=== PATIENT | female | born 1965 | race Hispanic/Latino ===

== ENCOUNTER 2016-04-07 09:47 | Outpatient (CLI) | payer BC ==
--- NOTE | 2016-04-07 15:51 | Mammography Report ---
RIGHT DIGITAL DIAGNOSTIC MAMMOGRAM and RIGHT BREAST ULTRASOUND: 04/07/16 09:47:00 CLINICAL: Recalled for asymmetry. COMPARISON:03/16/16 screening FINDINGS: Lateralmedial and spot magnification LM and CC views were performed. Satisfactory effacement of the previously described asymmetry on the CC spot view. However, a different partially circumscribed asymmetry is identified on both lateral and spot LM views. . Ultrasound of the left breast (including all four quadrants and the retroareolar area) was performed. A cluster of benign cysts at 9 o'clock 3 cm from the nipple measures 1.7 x 1.2 x 2.0 cm and correlates with the mammographic asymmetry on the lateral views. No ultrasound finding to correlate with the central asymmetry on the CC view. IMPRESSION: Benign cysts and no suspicious finding. BI-RADS CATEGORY: 2 - - Benign RECOMMENDATION: Routine mammographic screening in one year. ACR BI-RADS MAMMOGRAPHIC CODES: 0 = Needs additional imaging evaluation; 1 = Negative; 2 = Benign; 3 = Probably benign; 4 = Suspicious; 5 = Malignant; 6 = Known biopsy-proven malignancy COMMENT: 1. Dense breast tissue, i.e., adenosis, fibrocystic changes, etc., may obscure an underlying neoplasm. 2. Approximately 10% of cancers are not detected with mammography. 3. A negative mammography report should not delay biopsy if a clinically suspicious mass is present. COMMENT: Patient follow-up letters are generated via our [employer] application.
== END 2016-04-07 09:48 | disposition home or self-care (01) ==
LOC: SPVWC 09:47
PROVIDERS: ATTEND Obstetrics & Gynecology
DX: N60.01 Solitary cyst of right breast (principal); R92.8 Other abnormal and inconclusive findings on diagnostic imaging of breast
CPT/HCPCS: 76641; G0206

== ENCOUNTER 2017-06-13 10:52 | Outpatient (CLI) | payer BC ==
--- NOTE | 2017-06-14 13:01 | Mammography Report ---
BILATERAL DIGITAL SCREENING MAMMOGRAM with CAD: 06/13/17 10:52:00 CLINICAL: Routine screening. COMPARISON:03/16/16 FINDINGS: The breasts are heterogeneously dense, which may obscure small masses. Right asymmetry on both views requires additional imaging.No architectural distortion or suspicious calcifications.The left breast is negative. IMPRESSION: Right asymmetries requiring further workup. BI-RADS CATEGORY: 0 -- Additional Imaging Evaluation Required RECOMMENDATION: Recall for right mediolateral , spot magnification CC and MLO views and right breast ultrasound. ACR BI-RADS MAMMOGRAPHIC CODES: 0 = Needs additional imaging evaluation; 1 = Negative; 2 = Benign; 3 = Probably benign; 4 = Suspicious; 5 = Malignant; 6 = Known biopsy-proven malignancy COMMENT: 1. Dense breast tissue, i.e., adenosis, fibrocystic changes, etc., may obscure an underlying neoplasm. 2. Approximately 10% of cancers are not detected with mammography. 3. A negative mammography report should not delay biopsy if a clinically suspicious mass is present. COMMENT: Patient follow-up letters are generated via our [employer] application.
== END 2017-06-13 10:53 | disposition home or self-care (01) ==
LOC: SPVWC 10:52
PROVIDERS: ATTEND Obstetrics & Gynecology
DX: Z12.31 Encounter for screening mammogram for malignant neoplasm of breast (principal)
CPT/HCPCS: 77067

== ENCOUNTER 2017-06-23 09:24 | Outpatient (CLI) | payer BC ==
--- NOTE | 2017-06-23 12:33 | Ultrasound Report ---
RIGHT DIGITAL DIAGNOSTIC MAMMOGRAM and RIGHT BREAST ULTRASOUND: 06/23/17 09:24:00 CLINICAL: Recalled for asymmetry. COMPARISON:06/13/17 screening FINDINGS: ML and spot magnification MLO and CC views were performed. A partially circumscribed asymmetry persists on all views. Ultrasound of the upper outer right breast was performed and demonstrated a septated cyst with globular shape at 9 o'clock 6 cm from the nipple. It measures 3.2 x 2.1 x 1.8 cm and correlates with the mammographic density. A second benign cyst at 10 o'clock 6 cm from the nipple measures 1.1 x 0.5 x 1.0 cm. No solid mass or shadowing. IMPRESSION: Benign cysts at 9 o'clock and 10 o'clock right breast. BI-RADS CATEGORY: 2 - - Benign RECOMMENDATION: Routine mammographic screening in one year. ACR BI-RADS MAMMOGRAPHIC CODES: 0 = Needs additional imaging evaluation; 1 = Negative; 2 = Benign; 3 = Probably benign; 4 = Suspicious; 5 = Malignant; 6 = Known biopsy-proven malignancy COMMENT: 1. Dense breast tissue, i.e., adenosis, fibrocystic changes, etc., may obscure an underlying neoplasm. 2. Approximately 10% of cancers are not detected with mammography. 3. A negative mammography report should not delay biopsy if a clinically suspicious mass is present. COMMENT: Patient follow-up letters are generated via our [employer] application.
== END 2017-06-23 09:25 | disposition home or self-care (01) ==
LOC: SPVWC 09:24
PROVIDERS: ATTEND Obstetrics & Gynecology
DX: N60.01 Solitary cyst of right breast (principal); R92.8 Other abnormal and inconclusive findings on diagnostic imaging of breast

== ENCOUNTER 2018-06-12 12:39 | Outpatient (CLI) | payer BC ==
--- NOTE | 2018-06-13 10:25 | Mammography Report ---
BILATERAL DIGITAL SCREENING MAMMOGRAM with CAD : 06/12/18 12:39:00 CLINICAL: Routine screening.History of right breast cysts. COMPARISON:06/23/17 right breast ultrasound and mammograms from 06/23/17, 06/13/17, 04/07/16 and 03/16/16 FINDINGS: The breasts are heterogeneously dense, which may obscure small masses.Previously identified right outer cysts are smaller. A few scattered benign calcifications. No mass, architectural distortion or suspicious calcifications. IMPRESSION: No mammographic evidence of malignancy. BI-RADS CATEGORY: 2 -- Benign RECOMMENDATION: Routine mammographic screening in one year. COMMENT: Patient follow-up letters are generated by our [employer] application.
== END 2018-06-12 12:40 | disposition home or self-care (01) ==
LOC: SPVWC 12:39
PROVIDERS: ATTEND Obstetrics & Gynecology
DX: Z12.31 Encounter for screening mammogram for malignant neoplasm of breast (principal)
CPT/HCPCS: 77067

== ENCOUNTER 2020-01-23 16:00 | Outpatient (CLI) | payer BC ==
--- NOTE | 2020-01-24 08:33 | Mammography Report ---
DIGITAL SCREENING MAMMOGRAM WITH CAD, 01/23/2020 INDICATION: Routine screening mammography. SCREENING MAMMO TECHNIQUE: Digital bilateral 2D mammography was obtained in the craniocaudal and mediolateral obliq ue projections. This examination was interpreted with the benefit of Computer-Aided Detection analysi s. COMPARISON: 06/12/2018 FINDINGS: Breast Density: The breasts are heterogeneously dense, which may obscure small masses. There is no evidence of dominant mass, suspicious calcifications or architectural distortion in eithe r breast. IMPRESSION: Follow up recommendation: Routine yearly BI-RADS Category 1: Negative. A "normal" or negative report should not discourage follow up or biopsy of a clinically significant f inding. A written summary of these findings will be mailed to the patient. The patient will be entered into a mammography reporting system which will generate a reminder letter for the patient's next appointmen t at the appropriate interval. The [employer] recommends yearly mammograms starting at age 40 and continuing as l angelina as a woman is in good health. Breast MRI is recommended for women with an approximate 20-25% or greater lifetime risk of breast cancer, including women with a strong family history of breast or ova yossi cancer or who have been treated for Hodgkin's disease. Signer Name: Young Fleming MD Signed: 01/24/2020 8:28 AM Workstation Name: [email or web address]
== END 2020-01-23 16:01 | disposition home or self-care (01) ==
LOC: SPVWC 16:00
PROVIDERS: ATTEND Obstetrics & Gynecology
DX: Z12.31 Encounter for screening mammogram for malignant neoplasm of breast (principal)
CPT/HCPCS: 77067

== ENCOUNTER 2021-07-21 14:56 | Outpatient (CLI) | payer BC ==
--- NOTE | 2021-07-23 11:40 | Mammography Report ---
DIGITAL SCREENING MAMMOGRAM WITH CAD, 07/21/2021 CLINICAL INFORMATION / INDICATION: Routine screening mammography. SCREENING MAMMO Z12.31 TECHNIQUE: Digital bilateral 2D mammography was obtained in the craniocaudal and mediolateral obliqu e projections. This examination was interpreted with the benefit of Computer-Aided Detection analysis . COMPARISON: 01/23/2020, 06/12/2018 FINDINGS: Breast Density: The breasts are heterogeneously dense, which may obscure small masses. No dominant mass, suspicious calcifications, or architectural distortion in either breast. There is changing benign-appearing nodularity bilaterally. IMPRESSION: No mammographic evidence of malignancy. Follow up recommendation: Routine yearly BI-RADS Category 2: BENIGN. A "normal" or negative report should not discourage follow up or biopsy of a clinically significant f inding. A written summary of these findings will be mailed to the patient. The patient will be entered into a mammography reporting system which will generate a reminder letter for the patient's next appointmen t at the appropriate interval. The [employer] recommends yearly mammograms starting at age 40 and continuing as l angelina as a woman is in good health. Breast MRI is recommended for women with an approximate 20-25% or greater lifetime risk of breast cancer, including women with a strong family history of breast or ova yossi cancer or who have been treated for Hodgkin's disease. Signer Name: Douglas Albarran MD Signed: 07/23/2021 11:30 AM Workstation Name: [id number]
== END 2021-07-21 14:57 | disposition home or self-care (01) ==
LOC: SPVWC 14:56
PROVIDERS: ATTEND Obstetrics & Gynecology
DX: Z12.31 Encounter for screening mammogram for malignant neoplasm of breast (principal); N64.89 Other specified disorders of breast
CPT/HCPCS: 77067